=== PATIENT | male | born 1960 | race Caucasian/White ===

== ENCOUNTER 2020-10-28 12:38 | Outpatient (CLI) | payer OTHER, SELFPAY ==
--- NOTE | ~2020-10-28 | MR_ITS ---
EXAMINATION: MR thoracic spine wo/w con EXAM DATE: 10/28/2020 14:59 INDICATION: Multiple sclerosis. Arm and leg weakness. TECHNIQUE: Multi-sequential, multiplanar MR images of the thoracic spine were obtained without contra st. Sagittal T1, T2, T2 fat saturation, axial T2 weighted images reviewed. Axial T1 weighted sequenc e. Patient was then injected with 15 mL Multihance intravenous contrast and reimaged. Postcontrast axial and sagittal T1-weighted fat saturation sequences were obtained. There are no prior studies for comparison. FINDINGS: Couple of small upper thoracic cord T2 signal abnormalities are better visualized on the [facility] [id number] cervical spine examination obtained same date. In addition to those, there is als o similar small signal abnormality within the spinal cord at the T9 level. There is minimal thoracic disc disease. No regions of abnormal enhancement of the thoracic spine. Paraspinal soft tissue is unr emarkable. Mild thoracic facet arthropathy. 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 No evidence of active disease. Reviewed, dictated and finalized at location A. IMPRESSION: Upper and mid thoracic signal abnormalities consistent with myelom alacia from quiescent multiple sclerosis. No evidence of active disease.
--- NOTE | ~2020-10-28 | MR_ITS ---
EXAMINATION: MR brain/brain stem wo/w con EXAM DATE: 10/28/2020 14:59 INDICATION: Multiple sclerosis relapse. TECHNIQUE: Magnetic resonance imaging (MRI) of the brain/brain stem obtained without contrast. Sagit shilpa T1, axial diffusion, gradient echo (T2*), T1, T2, FLAIR sequences obtained. Patient was then inj ected with 17 cc intravenous Multihance contrast. Axial and coronal postcontrast T1 weighted sequence s obtained. Comparison is made to prior examination from 10/01/2014. FINDINGS: Again there are approximately 10 small white matter signal abnormalities, some involving th e margins of the corpus callosum, appearance and distribution unchanged compared to 2015. No enhancin g lesions. There are no areas of restricted diffusion to suggest acute infarction. There is no acute hemorrhage seen on the T2*, a hemosiderin sensitive sequence. No intraparenchymal brain mass. The ventricles a re normal in size. There are no extra-axial collections. Flow voids are seen in the cerebral arteri es on the T2-weighted sequences consistent with their expected patency. The orbits are unremarkable. Soft tissue is unremarkable. There are no areas of abnormal enhancement on the postcontrast image s. IMPRESSION: Scattered white matter signal abnormalities consistent with quiescent multiple sclerosis. No acute findings. Reviewed, dictated and finalized at location A. IMPRESSION: Scattered white matter signal abnormalities consistent with quiesce nt multiple sclerosis. No acute findings.
--- NOTE | ~2020-10-28 | MR_ITS ---
EXAMINATION: MR cervical spine wo/w con EXAM DATE: 10/28/2020 14:59 INDICATION: Multiple sclerosis exacerbation, arm and leg weakness. TECHNIQUE: Multi-sequential, multiplanar MR images of the cervical spine were obtained without contra st. Axial T2, axial T2 MERGE sequence. Sagittal T1, T2, T2 fat saturation images also obtained. Axi al T1 weighted sequence. Patient was then injected with 17 mL Multihance intravenous contrast and re imaged. Postcontrast axial and sagittal T1-weighted fat saturation sequences were obtained. There is no prior study for comparison. FINDINGS: There are no areas of abnormal enhancement on the post contrast images. Several small cerv ical spinal cord signal abnormalities identified, posterior to the C5 vertebral body, and sulci of se veral small upper thoracic hyperintensities at the T1, T3-4 and T5 levels. Appearance is consistent w ith quiescent multiple sclerosis. There is mild to moderate right neural foraminal stenosis at C5-6, otherwise only mild cervical spondylosis. IMPRESSION: 1. Scattered small cervical and upper thoracic cord signal abnormalities consistent with myelomalaci a from quiescent multiple sclerosis. 2. No enhancing lesions or acute findings. Reviewed, dictated and finalized at location A. IMPRESSION: 1. Scattered small cervical and upper thoracic cord signal abnormalities consi stent with myelomalacia from quiescent multiple sclerosis. 2. No enhancing lesions or acute findings.
[2020-10-28 13:18] LABS: Estimated Glomerular Filt Rate 57
== END 2020-10-28 12:39 | disposition home or self-care (01) ==
LOC: ANHIMG 12:40
PROVIDERS: PCP Family Medicine; Visit Provider Psychiatry & Neurology Neurology
DX: G35 Multiple sclerosis (principal)
CPT/HCPCS: 70553; 72156; 72157; A9577